=== PATIENT | male | born 1995 | race Caucasian/White ===

== ENCOUNTER 2018-07-16 17:34 | Emergency (ER) | payer OTHER, BC, SELFPAY ==
[2018-07-16 17:35] VITALS: BP 160/96; PULSE 86; RESP 16; TEMP 36.6; BMI 31.8
--- NOTE | 2018-07-16 17:51 | ED.VISSUMM ---
- ER Visit Summary Date of Service: 07/16/18 Chief Complaint: [Head injury] History of Present Illness: The patient is a 23 M [presents to the emergency department complaint of injury to his head that occurred around 3 PM while at work. Patient states that he stood up and he hit his head on a metal bar at work. He had no loss of consciousness. Denies any neck pain. He has not had any vomiting. Patient states that he just feels a little bit spacey. Patient states that he has had concussions in the past when playing high school football.] Physical Examination: [HEENT-PERRLA, EOMI. Cranial nerves II through XII grossly intact. TMs clear. Mucous membranes moist. No adenopathy. Evaluation of the right parietal scalp does reveal a linear contusion with superficial abrasion noted. There is no bony step-offs or depressions noted. Cardiovascular-regular rate and rhythm without murmur or ectopy Lungs-clear to auscultation, chest wall stable without crepitus or subcu emphysema Abdomen-normoactive bowel sounds, soft, nontender, no rebound or rigidity, no peritoneal signs. Neuro [id number] and heel zee testing within normal limits, negative Romberg, negative , Fundi benign Extremities-intact ?4, normal range of motion, normal pulses, atraumatic] Test Results: [None indicated] Emergency Department Course and Treatment: [] Treatment Plan: [With [facility] in 3-5 days] Disposition: [Discharged to home in stable condition] Impression: [Head injury/concussion] This note was generated with [employer] dictation software. It may contain incorrect words, spelling, and punctuation that were not noted in review of the chart prior to signing ED Disposition - Plan for ED Patient: Chief Complaint: Head Injury Referrals: Care Physician,No Primary [Primary Care Provider] -
--- NOTE | 2018-07-16 17:53 | ED.DEP ---
ED Disposition - Plan for ED Patient: Chief Complaint: Head Injury Instructions: ED Concussion Referrals: Care Physician,No Primary [Primary Care Provider] - [facility]] - 3-5 Days
[2018-07-16] MEDS: Diphth,Pertuss(Acell),Tet Vac 0.5 ML Vial IM (18:05)
[2018-07-16 18:24] VITALS: BP 147/48; PULSE 79; RESP 16; O2SAT 98
== END 2018-07-16 18:25 | disposition home or self-care (01) ==
LOC: ED 18:02
PROVIDERS: Emergency Provider Emergency Medicine
DX: S06.0X0A Concussion without loss of consciousness, initial encounter (principal); S00.03XA Contusion of scalp, initial encounter; S00.01XA Abrasion of scalp, initial encounter; W22.8XXA Striking against or struck by other objects, initial encounter; Y93.9 Activity, unspecified; Y92.9 Unspecified place or not applicable
CPT/HCPCS: 90471; 90715; 99282